=== PATIENT | male | born 1960 | race African-American/Black ===

== ENCOUNTER 2016-12-26 10:17 | Emergency (ER) | payer BC ==
[~2016-12-26] VITALS: Ht 180.3 cm; Wt 100.0 kg
[~2016-12-26 10:17] MED LIST: BUPR75TA3 PO; HYDROCHLOROTHIAZIDE; MIRT30TA PO
[2016-12-26 11:05] VITALS: BP 142/83
[2016-12-26 11:19] LABS: BASOPHILS % 0.4 % (0.0-2.0); EOSINOPHILS % 6.3 % (0.0-5.0); HEMATOCRIT. 41.8 % (42.0-52.0); HEMOGLOBIN. 13.9 g/dL (14.0-18.0); LYMPHOCYTES % 26.4 % (20.0-50.0); MEAN CORPUSCULAR HEMOGLOBIN 29.9 pg (28.0-32.0); MEAN CORPUSCULAR HGB CONC 33.3 g/dL (31.0-37.0); MEAN CORPUSCULAR VOLUME 89.7 fL (80.0-94.0); MEAN PLATELET VOLUME 8.3 fl (7.4-10.4); MONOCYTES % 8.5 % (2.0-8.0); NEUTROPHILS % 58.4 % (40.0-76.0); PARTIAL THROMBOPLASTIN TIME 27.9 sec (24.0-34.0); PLATELET 184 x1000/uL (130-400); PROTHROMBIN TIME 10.7 sec; RED BLOOD CELL COUNT 4.66 mill/uL (4.7-6.1); RED CELL DISTRIBUTION WIDTH 13.8 % (11.6-14.6)
[2016-12-26 11:21] LABS: ANION GAP 9; CALCIUM 8.8 mg/dL (8.5-10.1); CARBON DIOXIDE 30 mEq/L (21-32); CHLORIDE 107 mEq/L (98-107); INDEX HEMOLYSI 1 (1-3); INDEX ICTERIC 1 (1-4); INDEX LIPEMIC 1 (1-3); UREA NITROGEN BLOOD 11 mg/dL (7-21)
[2016-12-26 11:22] LABS: eGFR > 60 mL/min (>60)
== END 2016-12-26 13:53 | disposition home or self-care (01) ==
LOC: ER 13:06
DX: K62.5 Hemorrhage of anus and rectum (principal); F41.9 Anxiety disorder, unspecified; K64.4 Residual hemorrhoidal skin tags; I10 Essential (primary) hypertension; Z88.0 Allergy status to penicillin; Z79.899 Other long term (current) drug therapy
CPT/HCPCS: 36415; 71010; 80048; 84484; 85025; 85610; 85730; 86850; 86900; 86901; 93005; 99285; Z7610

== ENCOUNTER 2017-07-10 11:21 | Emergency (ER) | payer BC ==
[~2017-07-10] VITALS: Ht 185.4 cm; Wt 105.0 kg
[2017-07-10] MEDS ORDERED: LORAZEPAM 1MG TABLET PO ONE ×2 (12:00→13:15)
[2017-07-10 12:24] LABS: BASOPHILS % 0.8 % (0.0-2.0); EOSINOPHILS % 1.1 % (0.0-5.0); HEMOGLOBIN. 14.2 g/dL (14.0-18.0); LYMPHOCYTES % 22.5 % (20.0-50.0); MEAN CORPUSCULAR HEMOGLOBIN 30.4 pg (28.0-32.0); MEAN CORPUSCULAR VOLUME 89.8 fL (80.0-94.0); MEAN PLATELET VOLUME 7.8 fl (7.4-10.4); MONOCYTES % 7.8 % (2.0-8.0); NEUTROPHILS % 67.8 % (40.0-76.0); PLATELET 198 x1000/uL (130-400); RED BLOOD CELL COUNT 4.67 mill/uL (4.7-6.1); RED CELL DISTRIBUTION WIDTH 14.1 % (11.6-14.6)
[2017-07-10 12:31] LABS: INR 1.1
[2017-07-10 12:42] LABS: CARBON DIOXIDE 28 mEq/L (21-32); CHLORIDE 104 mEq/L (98-107); TROPONIN I < 0.02 ng/mL (0.00-0.04)
[2017-07-10] MEDS ORDERED: IBUPROFEN 600MG TABLET PO ONE (13:15)
[2017-07-10 13:20] VITALS: BP 138/89
== END 2017-07-10 13:20 | disposition home or self-care (01) ==
LOC: ER 11:30
DX: F14.10 Cocaine abuse, uncomplicated (principal); R07.9 Chest pain, unspecified; F17.200 Nicotine dependence, unspecified, uncomplicated; I10 Essential (primary) hypertension; F41.9 Anxiety disorder, unspecified; Z88.0 Allergy status to penicillin
CPT/HCPCS: 36415; 71010; 80053; 84484; 85025; 85610; 93005; 99285

== ENCOUNTER 2017-11-17 11:15 | Emergency (ER) | payer BC, MEDICAID ==
[~2017-11-17] VITALS: Ht 180.3 cm; Wt 104.0 kg
[2017-11-17 11:33] VITALS: BP 137/82
[2017-11-17 13:01] LABS: BASOPHILS % 0.5 % (0.0-2.0); EOSINOPHILS % 5.1 % (0.0-5.0); LYMPHOCYTES % 28.8 % (20.0-50.0); MEAN CORPUSCULAR HEMOGLOBIN 29.8 pg (28.0-32.0); MEAN CORPUSCULAR VOLUME 91.3 fL (80.0-94.0); MEAN PLATELET VOLUME 8.1 fl (7.4-10.4); MONOCYTES % 8.9 % (2.0-8.0); NEUTROPHILS % 56.7 % (40.0-76.0); PLATELET 230 x1000/uL (130-400); RED BLOOD CELL COUNT 4.71 mill/uL (4.7-6.1); RED CELL DISTRIBUTION WIDTH 13.5 % (11.6-14.6)
[2017-11-17 13:08] LABS: CHLORIDE 109 mEq/L (98-107)
[2017-11-17 13:15] LABS: CLARITY URINE CLEAR (CLEAR); COLOR URINE DARK YELLOW (YELLOW); KETONES URINE NEGATIVE (NEGATIVE); LEUKOCYTE ESTERASE URINE NEGATIVE (NEGATIVE); NITRITE URINE NEGATIVE (NEGATIVE); OCCULT BLOOD URINE NEGATIVE (NEGATIVE); PH URINE 5.5 (4.5-8.0); PROTEIN URINE NEGATIVE (NEGATIVE); SPECIFIC GRAVITY URINE 1.027 (1.005-1.030)
[2017-11-17] MEDS ORDERED: AZITHROMYCIN 500 MG TABLET PO SCH (13:30)
[2017-11-17] MEDS ORDERED: CEFTRIAXONE SODIUM 250 MG/VIAL IM ONE (13:30)
[2017-11-20 08:19] LABS: CHLAMYDIA TRACHOMATIS NAA Negative (Negative); NEISSERIA GONORRHOEAE NAA Negative (Negative)
== END 2017-11-17 14:48 | disposition left against medical advice (07) ==
LOC: ER 11:15
DX: R30.0 Dysuria (principal); J02.9 Acute pharyngitis, unspecified; R07.89 Other chest pain; Z20.2 Contact with and (suspected) exposure to infections with a predominantly sexual mode of transmission; F17.210 Nicotine dependence, cigarettes, uncomplicated; I10 Essential (primary) hypertension; Z88.0 Allergy status to penicillin
CPT/HCPCS: 36415; 80053; 81003; 85025; 87491; 87591; 93005; 99285

== ENCOUNTER 2017-12-13 15:01 | Emergency (ER) | payer MEDICAID ==
[~2017-12-13] VITALS: Ht 180.3 cm; Wt 100.0 kg
[2017-12-13 15:33] VITALS: BP 188/64
[2017-12-13] MEDS ORDERED: ASPIRIN 325MG EC TABLET PO ONE (16:15)
[2017-12-13 16:28] LABS: BASOPHILS % 0.5 % (0.0-2.0); EOSINOPHILS % 2.1 % (0.0-5.0); HEMATOCRIT. 43.1 % (42.0-52.0); HEMOGLOBIN. 14.7 g/dL (14.0-18.0); LYMPHOCYTES % 23.5 % (20.0-50.0); MEAN CORPUSCULAR HEMOGLOBIN 30.9 pg (28.0-32.0); MEAN CORPUSCULAR VOLUME 90.8 fL (80.0-94.0); MEAN PLATELET VOLUME 8.4 fl (7.4-10.4); MONOCYTES % 8.2 % (2.0-8.0); NEUTROPHILS % 65.7 % (40.0-76.0); PLATELET 212 x1000/uL (130-400); RED BLOOD CELL COUNT 4.75 mill/uL (4.7-6.1)
[2017-12-13 16:32] LABS: CHLORIDE 104 mEq/L (98-107); INR 1.1; PROTHROMBIN TIME 11.3 sec (9.4-11.6)
[2017-12-13] MEDS ORDERED: LORAZEPAM 2MG/ML CPJ IV ONE (16:45)
[2017-12-13 16:56] LABS: *AMPHETAMINES SCREEN URINE NEGATIVE (NEGATIVE); *BARBITURATES SCREEN URINE NEGATIVE (NEGATIVE); *BENZODIAZEPINES SCREEN URINE NEGATIVE (NEGATIVE); *COCAINE SCREEN URINE PRESUMTIVE POSITIVE (NEGATIVE); CANNABINOID URINE SCREEN NEGATIVE (NEGATIVE); METHADONE URINE SCREEN NEGATIVE (NEGATIVE); OPIATES URINE SCREEN NEGATIVE (NEGATIVE); PHENCYCLIDINE URINE SCREEN NEGATIVE (NEGATIVE)
== END 2017-12-13 18:05 | disposition home or self-care (01) ==
LOC: ER 15:20
DX: R07.89 Other chest pain (principal); F14.10 Cocaine abuse, uncomplicated; I10 Essential (primary) hypertension; F17.290 Nicotine dependence, other tobacco product, uncomplicated; Z88.0 Allergy status to penicillin
CPT/HCPCS: 36415; 71045; 80053; 80305; 83880; 84484; 85025; 85610; 93005; 96374; 99285; 99406; J2060; Z7610

== ENCOUNTER 2018-04-18 07:48 | Emergency (ER) | payer MEDICAID ==
[~2018-04-18] VITALS: Ht 180.3 cm; Wt 100.0 kg
[2018-04-18] MEDS ORDERED: KETOROLAC 60MG/2ML VIAL IM ONE (09:00)
[2018-04-18] MEDS ORDERED: LORAZEPAM 1MG TABLET PO ONE (09:00)
[2018-04-18 09:07] LABS: BASOPHILS % 0.6 % (0.0-2.0); EOSINOPHILS % 5.5 % (0.0-5.0); HEMATOCRIT. 41.5 % (42.0-52.0); HEMOGLOBIN. 13.6 g/dL (14.0-18.0); MEAN CORPUSCULAR HEMOGLOBIN 29.9 pg (28.0-32.0); MEAN CORPUSCULAR VOLUME 91.1 fL (80.0-94.0); MEAN PLATELET VOLUME 8.9 fl (7.4-10.4); MONOCYTES % 9.7 % (2.0-8.0); NEUTROPHILS % 55.2 % (40.0-76.0); PLATELET 195 x1000/uL (130-400); RED BLOOD CELL COUNT 4.55 mill/uL (4.7-6.1); RED CELL DISTRIBUTION WIDTH 13.8 % (11.6-14.6)
[2018-04-18 09:11] LABS: CHLORIDE 105 mEq/L (98-107)
[2018-04-18 09:13] LABS: INR 1.1
[2018-04-18] MEDS ORDERED: ACETAMINOPHEN WITH CODEINE 300/30MG TABLET PO ONE (12:45)
[2018-04-18] MEDS ORDERED: CYCLOBENZAPRINE 10MG TABLET PO ONE (12:45)
[2018-04-18 14:02] VITALS: BP 115/77
== END 2018-04-18 14:10 | disposition home or self-care (01) ==
LOC: ER 07:48
DX: R07.89 Other chest pain (principal); I10 Essential (primary) hypertension; F17.200 Nicotine dependence, unspecified, uncomplicated; Z88.0 Allergy status to penicillin
CPT/HCPCS: 36415; 71045; 80053; 83880; 84484; 85025; 85610; 93005; 96372; 99285; J1885

== ENCOUNTER 2018-06-22 10:24 | Emergency (ER) | payer MEDICAID ==
[~2018-06-22] VITALS: Ht 180.3 cm; Wt 100.0 kg
[2018-06-22 12:37] LABS: BASOPHILS % 0.4 % (0.0-2.0); EOSINOPHILS % 6.3 % (0.0-5.0); HEMATOCRIT. 42.5 % (42.0-52.0); HEMOGLOBIN. 14.1 g/dL (14.0-18.0); LYMPHOCYTES % 32.1 % (20.0-50.0); MEAN CORPUSCULAR HEMOGLOBIN 30.4 pg (28.0-32.0); MEAN CORPUSCULAR VOLUME 91.6 fL (80.0-94.0); MEAN PLATELET VOLUME 8.4 fl (7.4-10.4); MONOCYTES % 9.6 % (2.0-8.0); NEUTROPHILS % 51.6 % (40.0-76.0); PLATELET 222 x1000/uL (130-400); RED BLOOD CELL COUNT 4.64 mill/uL (4.7-6.1); RED CELL DISTRIBUTION WIDTH 14.1 % (11.6-14.6)
[2018-06-22 12:45] LABS: CHLORIDE 107 mEq/L (98-107)
[2018-06-22] MEDS ORDERED: KETOROLAC 15MG/ML VIAL IV ONE (14:00)
[2018-06-22 14:51] VITALS: BP 127/81
== END 2018-06-22 14:53 | disposition home or self-care (01) ==
LOC: ER 10:24
DX: R07.81 Pleurodynia (principal); R07.89 Other chest pain; R05 Cough; R00.1 Bradycardia, unspecified; I51.7 Cardiomegaly; I10 Essential (primary) hypertension; F17.200 Nicotine dependence, unspecified, uncomplicated; G89.29 Other chronic pain; M48.00 Spinal stenosis, site unspecified; Z88.0 Allergy status to penicillin
CPT/HCPCS: 36415; 71045; 80053; 83880; 84484; 85025; 93005; 96374; 99285; J1885

== ENCOUNTER 2018-10-06 11:28 | Emergency (ER) | payer MEDICAID ==
[~2018-10-06] VITALS: Ht 180.3 cm; Wt 96.0 kg
[2018-10-06 11:38] VITALS: BP 125/80
== END 2018-10-06 15:20 | disposition left against medical advice (07) ==
LOC: ER 11:28
DX: R07.89 Other chest pain (principal); Z53.21 Procedure and treatment not carried out due to patient leaving prior to being seen by health care provider
CPT/HCPCS: 93005

== ENCOUNTER 2018-10-08 08:07 | Emergency (ER) | payer MEDICAID ==
[~2018-10-08] VITALS: Ht 180.3 cm; Wt 96.0 kg
[2018-10-08] MEDS ORDERED: AMLO10TA80 PO (08:20)
[2018-10-08] MEDS ORDERED: PHENYTOIN SODIUM EXTENDED 100MG CAPSULE PO ONE (10:15)
[2018-10-08 10:47] LABS: CLARITY URINE CLEAR (CLEAR); COLOR URINE DARK YELLOW (YELLOW); KETONES URINE TRACE (NEGATIVE); LEUKOCYTE ESTERASE URINE NEGATIVE (NEGATIVE); NITRITE URINE NEGATIVE (NEGATIVE); OCCULT BLOOD URINE NEGATIVE (NEGATIVE); PROTEIN URINE NEGATIVE (NEGATIVE); SPECIFIC GRAVITY URINE 1.029 (1.005-1.030)
[2018-10-08 11:36] LABS: *AMPHETAMINES SCREEN URINE NEGATIVE (NEGATIVE); *BARBITURATES SCREEN URINE NEGATIVE (NEGATIVE); *BENZODIAZEPINES SCREEN URINE NEGATIVE (NEGATIVE); *COCAINE SCREEN URINE PRESUMTIVE POSITIVE (NEGATIVE); METHADONE URINE SCREEN NEGATIVE (NEGATIVE); OPIATES URINE SCREEN PRESUMTIVE POSITIVE (NEGATIVE)
[2018-10-08 11:37] LABS: CANNABINOID URINE SCREEN NEGATIVE (NEGATIVE); PHENCYCLIDINE URINE SCREEN NEGATIVE (NEGATIVE)
[2018-10-08 11:39] LABS: BASOPHILS % 0.7 % (0.0-2.0); EOSINOPHILS % 6.2 % (0.0-5.0); HEMATOCRIT. 44.6 % (42.0-52.0); HEMOGLOBIN. 14.5 g/dL (14.0-18.0); LYMPHOCYTES % 33.2 % (20.0-50.0); MEAN CORPUSCULAR HEMOGLOBIN 30.3 pg (28.0-32.0); MEAN PLATELET VOLUME 8.5 fl (7.4-10.4); MONOCYTES % 9.3 % (2.0-8.0); NEUTROPHILS % 50.6 % (40.0-76.0); PLATELET 222 x1000/uL (130-400); RED CELL DISTRIBUTION WIDTH 14.2 % (11.6-14.6)
[2018-10-08 11:41] LABS: CHLORIDE 106 mEq/L (98-107)
[2018-10-08 12:55] VITALS: BP 120/85
== END 2018-10-08 12:58 | disposition home or self-care (01) ==
LOC: ER 08:07
DX: M94.0 Chondrocostal junction syndrome [Tietze] (principal); R07.81 Pleurodynia; J06.9 Acute upper respiratory infection, unspecified; F19.10 Other psychoactive substance abuse, uncomplicated; I10 Essential (primary) hypertension; F32.9 Major depressive disorder, single episode, unspecified; F17.200 Nicotine dependence, unspecified, uncomplicated; Z88.0 Allergy status to penicillin
CPT/HCPCS: 36415; 71101; 80048; 80305; 81003; 84484; 85025; 93005; 99284; Z7610

== ENCOUNTER 2018-12-18 11:11 | Emergency (ER) | payer MEDICAID ==
[~2018-12-18] VITALS: Ht 180.3 cm; Wt 102.0 kg
[~2018-12-18 11:11] MED LIST changes: +AMLO10TA80 PO; -BUPR75TA3 PO
[2018-12-18] MEDS ORDERED: CEFTRIAXONE SODIUM 250 MG/VIAL IM ONE (12:30)
[2018-12-18] MEDS ORDERED: AZITHROMYCIN 500 MG TABLET PO ONE (12:30)
[2018-12-18 13:33] VITALS: BP 124/81
[2018-12-21 17:08] LABS: CHLAMYDIA TRACHOMATIS NAA Negative (Negative); NEISSERIA GONORRHOEAE NAA Negative (Negative)
== END 2018-12-18 14:13 | disposition home or self-care (01) ==
LOC: ER 11:11
DX: N34.2 Other urethritis (principal); I10 Essential (primary) hypertension; F17.200 Nicotine dependence, unspecified, uncomplicated; Z88.0 Allergy status to penicillin; Z79.899 Other long term (current) drug therapy
CPT/HCPCS: 87491; 87591; 96372; 99283; J0696; Z7610

== ENCOUNTER 2019-01-10 11:48 | Emergency (ER) | payer MEDICAID ==
[~2019-01-10] VITALS: Ht 180.3 cm; Wt 102.0 kg
[2019-01-10] MEDS ORDERED: LORAZEPAM 0.5MG TABLET PO ONE (12:30)
[2019-01-10] MEDS ORDERED: SODIUM CHLORIDE 0.9% 1,000 ML IV ONE (12:30)
[2019-01-10] MEDS ORDERED: KETOROLAC 15MG/ML VIAL IV ONE (13:30)
[2019-01-10 14:40] LABS: BASOPHILS % 0.9 % (0.0-2.0); EOSINOPHILS % 6.9 % (0.0-5.0); HEMATOCRIT. 41.5 % (42.0-52.0); HEMOGLOBIN. 13.6 g/dL (14.0-18.0); LYMPHOCYTES % 29.7 % (20.0-50.0); MEAN CORPUSCULAR HEMOGLOBIN 29.7 pg (28.0-32.0); MEAN CORPUSCULAR VOLUME 90.7 fL (80.0-94.0); MEAN PLATELET VOLUME 8.1 fl (7.4-10.4); MONOCYTES % 8.2 % (2.0-8.0); NEUTROPHILS % 54.3 % (40.0-76.0); PLATELET 171 x1000/uL (130-400); RED BLOOD CELL COUNT 4.58 mill/uL (4.7-6.1); RED CELL DISTRIBUTION WIDTH 13.6 % (11.6-14.6)
[2019-01-10 14:58] LABS: CHLORIDE 109 mEq/L (98-107)
[2019-01-10 15:37] VITALS: BP 118/78
== END 2019-01-10 15:43 | disposition home or self-care (01) ==
LOC: ER 11:48
DX: R51 Headache (principal); H57.13 Ocular pain, bilateral; R07.9 Chest pain, unspecified; F41.9 Anxiety disorder, unspecified; I10 Essential (primary) hypertension; F17.290 Nicotine dependence, other tobacco product, uncomplicated; Z88.0 Allergy status to penicillin; Z79.899 Other long term (current) drug therapy; Z98.890 Other specified postprocedural states
CPT/HCPCS: 36415; 70450; 80053; 85025; 93005; 96374; 99284; 99406; J1885; J7030

== ENCOUNTER 2019-04-11 12:46 | Inpatient (IN) | payer MEDICAID ==
[~2019-04-11] VITALS: Ht 177.8 cm; Wt 98.0 kg
[2019-04-11] MEDS ORDERED: SODIUM CHLORIDE 0.9% 1,000 ML IV ONE (18:25)
[2019-04-11] MEDS ORDERED: MORPHINE SULFATE 4 MG/ML CPJ (NOT FOR IM USE) IV STA (18:25)
[2019-04-11] MEDS ORDERED: ONDANSETRON HCL 4MG/2ML INJ IV STA (18:25)
[2019-04-11] MEDS ORDERED: ASPIRIN 81MG TABLET PO ONE (18:30)
[2019-04-11 18:32] LABS: BASOPHILS % 0.4 % (0.0-2.0); EOSINOPHILS % 3.1 % (0.0-5.0); HEMATOCRIT. 34.7 % (42.0-52.0); HEMOGLOBIN. 11.6 g/dL (14.0-18.0); LYMPHOCYTES % 23.9 % (20.0-50.0); MEAN CORPUSCULAR HEMOGLOBIN 30.6 pg (28.0-32.0); MEAN CORPUSCULAR VOLUME 91.2 fL (80.0-94.0); MEAN PLATELET VOLUME 7.8 fl (7.4-10.4); MONOCYTES % 11.2 % (2.0-8.0); NEUTROPHILS % 61.4 % (40.0-76.0); PLATELET 235 x1000/uL (130-400); RED CELL DISTRIBUTION WIDTH 13.7 % (11.6-14.6)
[2019-04-11 18:38] LABS: CHLORIDE 105 mEq/L (98-107)
[2019-04-11 18:42] LABS: D-DIMER 0.65 mg/L FEU (<0.50); PARTIAL THROMBOPLASTIN TIME 30.3 sec (23.4-31.0); PROTHROMBIN TIME 10.3 sec (9.6-11.0)
[2019-04-11] MEDS: NITROGLYCERIN 0.4MG TABLET SL SL PRN ×3 (18:54→21:13)
[2019-04-11] MEDS ORDERED: MORPHINE SULFATE 4 MG/ML CPJ (NOT FOR IM USE) IV ONE ×2 (20:00→21:00)
[2019-04-11 20:31] LABS: CLARITY URINE CLEAR (CLEAR); COLOR URINE YELLOW (YELLOW); KETONES URINE NEGATIVE (NEGATIVE); LEUKOCYTE ESTERASE URINE NEGATIVE (NEGATIVE); NITRITE URINE NEGATIVE (NEGATIVE); OCCULT BLOOD URINE NEGATIVE (NEGATIVE); PROTEIN URINE NEGATIVE (NEGATIVE); SPECIFIC GRAVITY URINE 1.018 (1.005-1.030)
[2019-04-11] MEDS ORDERED: LORAZEPAM 2MG/ML CPJ IV ONE (20:45)
[2019-04-11] MEDS ORDERED: IOHEXOL-350 100 ML BOTTLE ONE (22:01)
[2019-04-12 00:05] VITALS: BP 144/79
[2019-04-12] MEDS ORDERED: MORPHINE SULFATE 4 MG/ML CPJ (NOT FOR IM USE) IV PRN (00:45)
[2019-04-12 02:43] VITALS: BP 136/79
[2019-04-12] MEDS: HYDROMORPHONE HCL/PF 2MG/ML CPJ IV PRN ×5 (02:44→21:22)
[2019-04-12] MEDS: LORAZEPAM 2MG/ML CPJ IV PRN (04:06)
[2019-04-12 08:15] LABS: CHLORIDE 107 mEq/L (98-107)
[2019-04-12 08:27] LABS: HDL CHOLESTEROL 54 mg/dL (40-59)
[2019-04-12 08:30] LABS: LDL CHOLESTEROL 80 mg/dL (5-100)
[2019-04-12] MEDS: METOPROLOL TARTRATE 50MG TABLET PO SCH ×3 (09:00→21:00)
[2019-04-12] MEDS ORDERED: ENOXAPARIN 40MG/0.4ML SYR SUBCUT SCH (09:00)
[2019-04-12] MEDS ORDERED: ASPIRIN 325MG EC TABLET PO SCH (09:00)
[2019-04-12] MEDS: HYDROCODONE/ACETAMINOPHEN 10/325MG TABLET PO PRN ×3 (09:35→20:14)
[2019-04-12] MEDS: ISOSORBIDE MONONITRATE 60MG TABLET SR 24HR PO SCH (09:36)
[2019-04-12] MEDS: AMLODIPINE 10MG TABLET PO SCH (09:37)
[2019-04-12 20:00] VITALS: BP 120/71
[2019-04-12] MEDS ORDERED: MIRTAZAPINE 30MG TABLET PO SCH (21:00)
[2019-04-13] VITALS: BP 110/68
[2019-04-13] MEDS: HYDROMORPHONE HCL/PF 2MG/ML CPJ IV PRN ×4 (01:23→14:47)
[2019-04-13 05:50] LABS: BASOPHILS % 0.4 % (0.0-2.0); EOSINOPHILS % 3.6 % (0.0-5.0); HEMATOCRIT. 30.1 % (42.0-52.0); HEMOGLOBIN. 10.1 g/dL (14.0-18.0); LYMPHOCYTES % 26.1 % (20.0-50.0); MEAN CORPUSCULAR HEMOGLOBIN 30.7 pg (28.0-32.0); MEAN CORPUSCULAR VOLUME 91.5 fL (80.0-94.0); MEAN PLATELET VOLUME 8.2 fl (7.4-10.4); MONOCYTES % 12.4 % (2.0-8.0); NEUTROPHILS % 57.5 % (40.0-76.0); PLATELET 238 x1000/uL (130-400); RED BLOOD CELL COUNT 3.29 mill/uL (4.7-6.1); RED CELL DISTRIBUTION WIDTH 13.4 % (11.6-14.6)
[2019-04-13 05:59] LABS: CHLORIDE 105 mEq/L (98-107)
[2019-04-13] MEDS: HYDROCODONE/ACETAMINOPHEN 10/325MG TABLET PO PRN ×3 (05:59→16:41)
[2019-04-13 08:00] VITALS: BP 106/69
[2019-04-13] MEDS: METOPROLOL TARTRATE 50MG TABLET PO SCH (08:57)
[2019-04-13] MEDS: ISOSORBIDE MONONITRATE 60MG TABLET SR 24HR PO SCH (08:57)
[2019-04-13] MEDS: AMLODIPINE 10MG TABLET PO SCH (08:58)
[2019-04-13] MEDS ORDERED: ENOXAPARIN 30MG/0.3ML SYR SUBCUT SCH (09:00)
[2019-04-13] MEDS: LORAZEPAM 2MG/ML CPJ IV PRN (14:09)
[2019-04-13 16:14] VITALS: BP 118/72
[2019-04-13 16:41] VITALS: BP 118/72
[2019-04-14] MEDS ORDERED: ALPR1TAB2 PO (20:26)
[2019-04-14] MEDS ORDERED: HYDR-4009 MT (20:26)
== END 2019-04-13 17:00 | disposition home health service (06) | DRG 756 ==
LOC: ER 12:46 → EDBEDREQ 19:57 → EDBEDREQTM 19:57 → 6WST 20:21 → EDBEDREQTM 20:28 → EDBEDREQ 20:28 → ENRESERV 22:09
PROVIDERS: ADMIT Internal Medicine; ATTEND Internal Medicine
DX: F41.9 Anxiety disorder, unspecified (principal); D64.9 Anemia, unspecified; I10 Essential (primary) hypertension; E66.9 Obesity, unspecified; F17.210 Nicotine dependence, cigarettes, uncomplicated; Z68.31 Body mass index [BMI] 31.0-31.9, adult; Z88.0 Allergy status to penicillin
CPT/HCPCS: 36415; 71045; 71275; 80048; 80061; 83880; 84484; 85379; 93005; 93306; 93970; 96365; 97162; 99285; J1170; J1650; J2270; J2405; J7030; Q9967

== ENCOUNTER 2025-01-01 19:02 | Emergency (ER) | payer MEDICARE, MEDICAID ==
[~2025-01-01] VITALS: Ht 177.8 cm; Wt 97.5 kg
[~2025-01-01 19:02] MED LIST changes: +ALPR1TAB2 PO; +HYDR-4009 MT; -HYDROCHLOROTHIAZIDE; +MIRT-145 PO; -MIRT30TA PO
[2025-01-01 19:09] VITALS: TEMP 36.7; O2SAT 100
[2025-01-01] MEDS ORDERED: ACETAMINOPHEN 325MG TABLET PO STA (19:30)
[2025-01-01] MEDS: KETOROLAC 15MG/ML VIAL IM ONE (19:53)
[2025-01-01 20:10] LABS: BASOPHILS % 0.7 % (0.0-2.0); EOSINOPHILS % 4.4 % (0.0-5.0); HEMATOCRIT. 46.6 % (42.0-52.0); HEMOGLOBIN. 15.3 g/dL (14.0-18.0); LYMPHOCYTES % 31.5 % (20.0-50.0); MEAN CORPUSCULAR HGB CONC 32.8 g/dL (31.0-37.0); MEAN CORPUSCULAR VOLUME 91.6 fL (80.0-94.0); MEAN PLATELET VOLUME 8.8 fl (7.4-10.4); MONOCYTES % 8.7 % (2.0-8.0); NEUTROPHILS % 54.7 % (40.0-76.0); PLATELET 213 x1000/uL (130-400); RED BLOOD CELL COUNT 5.08 mill/uL (4.7-6.1); RED CELL DISTRIBUTION WIDTH 13.8 % (11.6-14.6); WHITE BLOOD COUNT 6.3 x1000/uL (4.5-11.0)
[2025-01-01 20:11] LABS: CHLORIDE 105 mEq/L (98-107); POTASSIUM 3.8 mEq/L (3.5-5.1); SODIUM 140 mEq/L (136-145)
[2025-01-01 20:12] LABS: CARBON DIOXIDE 29 mEq/L (21-32)
[2025-01-01 20:13] LABS: CALCIUM 9.8 mg/dL (8.7-10.4)
[2025-01-01 20:14] LABS: PROTHROMBIN TIME 10.9 sec (9.6-11.0)
[2025-01-01 20:17] LABS: CREATININE 0.8 mg/dL (0.6-1.3); GLUCOSE 100 mg/dL (70-105)
[2025-01-01 20:18] LABS: UREA NITROGEN BLOOD 10 mg/dL (9-23)
[2025-01-01 20:19] LABS: ALANINE AMINOTRANSFERASE 15 IU/L (10-49); ASPARTATE AMINOTRANSFERASE 29 IU/L (<34)
[2025-01-01 20:20] LABS: BILIRUBIN DIRECT 0.1 mg/dL (<=3.0); BILIRUBIN TOTAL 0.5 mg/dL (0.1-1.0)
[2025-01-01 20:29] LABS: TROPONIN I HIGH SENSITIVITY < 4 ng/L (3.0-53)
[2025-01-01] MEDS ORDERED: NAPR-681 MT (22:23)
[2025-01-01 22:28] VITALS: BP 127/82; PULSE 66; RESP 18; O2SAT 100
== END 2025-01-01 22:30 | disposition home or self-care (01) ==
LOC: ER 19:02
DX: R07.89 Other chest pain (principal); I10 Essential (primary) hypertension; Z79.1 Long term (current) use of non-steroidal anti-inflammatories (NSAID); Z79.899 Other long term (current) drug therapy; Z88.0 Allergy status to penicillin
CPT/HCPCS: 99285; 71045; 80076; 80048; 85025; 85610; 84484; 36415; 93005; 96372; J1885; A4606